=== PATIENT | male | born 1990 | race Caucasian/White ===

== ENCOUNTER 2018-11-22 09:00 | Outpatient (RCR) | payer BC, SELFPAY ==
--- NOTE | 2018-10-28 17:25 | HP.PTEVAL_ITS ---
Patient's Visit Information TEE CAMPUZANO is a 28 year old M referred to Physical Therapy by Rj Wakefield MD with a diagnosis of L ACL reconstruction and medial/lateral menisectomy. Date of Evaluation: 10/28/18 Physical Therapist: Julius Duvall DPT - Visit Plan Frequency: 2x /Week Duration: 6 Weeks Plan: Start with ROM of L knee both into flexion and extension. Add in cycling as tolerated. Progress quad/HS isometrics to SLR if able to complete with out quad lag. Progress HEP as able. May use ice and vaso for edema control. - Subjective Findings: Pt. is here today for his initial evalution with diagnosis of L ACL reconstruction and menisectomy. Pt. had surgery on 10/17/18. Pt. reports minimal pain currently. Pt. orignially hurt his knee 1 year ago while wake boarding. Pt. tried to complete exercises conservatively, but was ultimately not able to. Pt. has been working on bending his knee, but nothing otherwise. Pt. reports physician advised him to leave brace on while walking, but to unlock. Pt. denies N/T. 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 Pt. is hopeful to increase his ROM, strength and functional mobility in order to compelte all work and recreational activities without issues. - Objective POSTURE: Pt. has slight R lateral lean in stance. Pt. has decreased L TKE and decreased L sided WBing. Pt. does no use AD in stance. PALPATION: Pt. has marked joint effusion, non pitting. No signs of infection or mark's sign. Pt. has normal healing incision. NEURO: Pt. has normal sensation throughout bilateral LEs. Pt. has 2+ achilles DTR bilateraly. ROM: R Knee 0-0-136deg. L knee- 0-6-101deg. MMT: RLE- 5/5 throughout. LLE- ankle 5/5 throughout; knee- ext SLR (15deg lag), flexion 4/5; hip- fleixon 4/5, abd 4/5, ext 4/5. GAIT: Pt. ambulates without AD, with knee in brace unlocked. Pt. has decrased step length with RLE and lack TKE during L stance phase. - Goals Goal 1:: Pt. to be I with HEP. Goal Time Frame: 4-6 Weeks Goal 2:: Pt. to have increased L knee ROM to 0-0-120deg without increase in symptoms. Goal Time Frame: 4-6 Weeks Goal 3:: Pt. to have increased quad control as seen in less than 5deg lag with SLR x20. Goal Time Frame: 4-6 Weeks Goal 4:: Pt. to have improved gait without AD with normalized pattern without increase in symptoms. Goal Time Frame: 4-6 Weeks Goal 5:: Pt. to have decreased edema of L knee with symmetrical girth indicating improved envoirnment for healing. Goal Time Frame: 4-6 Weeks - Rehabilitation Potential Physical Therapy Diagnosis: Pt. has signs and symptoms consistent with hypombility and quad atrophy secondary to ACL recontruction and menisectomy. Pt. would benefit from PT to increase L knee ROM and initial muscle activation in preperation ofr greater fuctional demands. Rehabilitation Potential: Excellent - Anticipated Interventions Patient/Client Instruction: Educate patient on: Condition, Plan of Care, Risk Factors, Benefits of Fitness Program For the Purpose of:: To facilitate caregiver knowledge, To improve self management, To prevent re-injury, To improve ability to perform tasks related to life management, To improve tolerance to ADL's Therapeutic Exercise to Include: Strength training, Power training, Endurance training, Balance training, Postural training, Flexibilty training, Gait and locomotor training, Passive ROM, Active ROM, Dynamic Lumbar Stabilization For the Purpose of:: To decrease pain, To increase ROM, To improve nutrient delivery to tissue, To increase oxygenation perfusion, To improve muscle performance and motor function, To improve gait and locomotor functions, To improve health of tissue, To decrease soft tissue restriction, To increase flexibility/ROM Manual Therapy Techniques to Include: Scar massage, Passive ROM, Soft tissue mobilization For the Purpose of:: To decrease pain, To decrease swelling/inflammation, To increase ROM, To improve nutrient delivery to tissue TENS: Yes IF ES: Yes Cryotherapy (ice pack, ice massage): Yes Vasopneumatic device: Yes For the Purpose of:: To decrease pain, To decrease swelling/inflammation, To increase ROM Thank you for the opportunity to evaluate your patient. For Medicare and Medicare HMO plans, please review the plan of care and approve it. It will need to be FAXED BACK to us at [phone] for Medicare purposes. For Medicare only, by signing this I certify the plan of care. Please let me know if there are questions or concerns regarding this plan of care. Physician Signature: Date:
--- NOTE | 2019-01-25 13:08 | HP.PT.NRP ---
HP - Discharge Summary (1) - Patient Information TEE CAMPUZANO was seen in my office for initial evaluation on 10/28/18. The following Plan of Care was established for this patient: Initial Frequency: 2x /Week Initial Duration: 6 Weeks - Anticipated Interventions Patient/Client Instruction: Educate patient on: Condition, Plan of Care, Risk Factors, Benefits of Fitness Program For the Purpose of:: To facilitate caregiver knowledge, To improve self management, To prevent re-injury, To improve ability to perform tasks related to life management, To improve tolerance to ADL's Therapeutic Exercise to Include: Strength training, Power training, Endurance training, Balance training, Postural training, Flexibilty training, Gait and locomotor training, Passive ROM, Active ROM, Dynamic Lumbar Stabilization For the Purpose of:: To decrease pain, To increase ROM, To improve nutrient delivery to tissue, To increase oxygenation perfusion, To improve muscle performance and motor function, To improve gait and locomotor functions, To improve health of tissue, To decrease soft tissue restriction, To increase flexibility/ROM Manual Therapy Techniques to Include: Scar massage, Passive ROM, Soft tissue mobilization For the Purpose of:: To decrease pain, To decrease swelling/inflammation, To increase ROM, To improve nutrient delivery to tissue TENS: Yes IF ES: Yes Cryotherapy (ice pack, ice massage): Yes Vasopneumatic device: Yes For the Purpose of:: To decrease pain, To decrease swelling/inflammation, To increase ROM This patient was last seen in our office 11/22/18. Pertinent comments regarding their Physical therapy will appear below: Pt. was treated for hes ACL repair. Pt. was treated with ROM and quad/glute/HS activation exericses. Pt. did not attend his last few visits and has not been seen in several weeks. Pt. will be DC from PT at this point in time. At this point I will be discontinuing this patient from physical therapy. I would be happy to see this patient again in the future if found appropriate by the physician. Thank you! AP OrtizT
== END 2018-11-22 19:00 | disposition home or self-care (01) ==
LOC: PT 09:00
PROVIDERS: Referring Provider Orthopaedic Surgery; Visit Provider Orthopaedic Surgery
DX: S83.282D Other tear of lateral meniscus, current injury, left knee, subsequent encounter (principal); S83.512D Sprain of anterior cruciate ligament of left knee, subsequent encounter; M25.562 Pain in left knee
CPT/HCPCS: 97110; 97161